=== PATIENT | male | born 1975 | race Hispanic/Latino ===

== ENCOUNTER 2019-04-11 07:17 | Emergency (ER) | payer SELFPAY ==
[2019-04-11] MEDS ORDERED: Ondansetron PF 4 MG/2 ML Vial ONE (07:31)
[2019-04-11] MEDS ORDERED: Morphine 4 MG/ML VIAL ONE (07:31)
[2019-04-11 08:00] LABS: #Lymphocytes 2.1 thou/uL (1.20-3.40); #Monocytes 0.5 thou/uL (0.11-0.59); #Neutrophils 9.7 thou/uL (1.40-6.50); %Basophils 0.4 % (0.0-1.0); %Eosinophils 0.3 % (0.0-10.0); %Lymphocytes 16.9 % (21.0-51.0); %Monocytes 4.4 % (0.0-10.0); %Neutrophils 78.1 % (42.0-75.0); Mean Corpuscular HGB CONC 33.4 g/dL (32.0-36.0); Mean Corpuscular Hemoglobin 28.6 pg (27.0-31.0); Mean Corpuscular Volume 85.5 fL (78.0-98.0); Mean Platelet Volume 8.8 fL (7.4-10.4); Platelet Count 258 thou/uL (130-400); RBC Distribution Width 11.9 % (11.5-14.5); Red Blood Cell (RBC) Count 5.23 mill/uL (4.70-6.10); White Blood Cell (WBC) Count 12.5 thou/uL (4.8-10.8)
[2019-04-11 08:25] LABS: ALT (SGPT) 64 U/L (8-55); AST (SGOT) 39 U/L (5-34); Albumin 4.6 g/dL (3.5-5.0); Alkaline Phosphatase 103 U/L (40-110); Anion Gap 13 mmol/L (10-20); BUN (Urea Nitrogen) 19 mg/dL (8.9-20.6); Bilirubin, Total 0.6 mg/dL (0.2-1.2); Calc. Creatinine Clearance 0 mL/min (70-130); Calcium 9.6 mg/dL (7.8-10.44); Carbon Dioxide 27 mmol/L (22-29); Chloride 103 mmol/L (98-107); Estimated GFR-MDRD 50; Globulin 3.4 g/dL (2.4-3.5); Glucose 174 mg/dL (70-105); Lipase 21 U/L (8-78); Potassium 4.5 mmol/L (3.5-5.1); Sodium 138 mmol/L (136-145)
[2019-04-11 08:54] LABS: Bacteria/HPF None Seen HPF (None Seen); Bilirubin Negative (Negative); Blood, Urine 2+ (Negative); Clarity Clear (Clear); Glucose, Urine (Dipstick) Normal (Negative); Leukocyte Negative Leu/uL (Negative); Nitrite Negative (Negative); Protein, Urine (Dipstick) 20 mg/dL (Neg-Trace); RBC/HPF Greater than 50 HPF (0-3); Squamous Epithelial 0-3 HPF (0-3); Urobilinogen Normal mg/dL (Less than 2); WBC/HPF 0-3 HPF (0-3)
[2019-04-11] MEDS ORDERED: Ketorolac Tromethamine 30 MG/ML VIAL ONE (09:23)
--- NOTE | 2019-04-11 09:28 | CT ---
ABDOMEN CT WITH CONTRAST PELVIC CT WITH CONTRAST: HISTORY: Pain radiating to the back. COMPARISON: None. FINDINGS: ABDOMEN CT: A 5 mm nodule in the middle lobe. A 4 mm solid nodule in the lingula. Normal heart size. Normal caliber aorta. Portal vein is patent. Gallbladder is unremarkable. Hypoattenuation of the liver compatible with hepatic steatosis. No enhancing masses. Spleen, pancreas, and adrenal glands have appropriate enhancement. No periportal or retrocrural lymphadenopathy. There are enlarged gastrohepatic lymph nodes measuring 1.1 x 1.0 cm and 1.0 x 2.1 cm. No mesenteric mass, lymphadenopathy, free air, or free fluid. Limited evaluation of the alimentary canal by the lack of oral contrast. No evidence of small bowel obstruction. Ileocecal junction is unremarkable. Normal-caliber appendix. Scattered fecal material in a nondistended, nondilated colon. Occasional diverticulum. No diverticulitis. There is moderate dilatation of the right intrarenal collecting system as well as moderate dilatation and adjacent stranding of the right ureter. There a solitary calculus in the distal right ureter, m easuring 0.3 cm. Calculus is just proximal to the right ureterovesicular junction. There is slightl y decreased enhancement of the right kidney with respect to the contralateral side. Nonobstructing c alculus in the upper pole of the right kidney measuring 0.3 cm. No evidence of left-sided obstructiv e uropathy. CT PELVIS: No mass, lymphadenopathy, free air, or free fluid. There are no lytic or blastic lesions within the osseous structures. IMPRESSION: 1. Delayed nephrogram phase with associated moderate obstruction of the right intra- an extrarenal c ollecting system secondary to a 3 mm calculus in the distal right ureter. 2. Enlarged gastrohepatic lymph nodes, nonspecific. 3. Nonspecific solid nodules in the lung bases. CODE LN POS: [facility]
[2019-04-11] MEDS ORDERED: Iopamidol-370 76% 500 ML 1 ML ONE (13:45)
== END 2019-04-11 09:56 | disposition home or self-care (01) ==
LOC: ERS 07:17
DX: N20.2 Calculus of kidney with calculus of ureter (principal); R11.0 Nausea
CPT/HCPCS: 74177; 80053; 81003; 81015; 83690; 85025; 87086; J1885; J2270; J2405; Q9967